=== PATIENT | female | born 1990 | race Caucasian/White ===

== ENCOUNTER 2021-10-05 12:01 | Emergency (ER) | payer BC, MEDICAID, SELFPAY ==
--- NOTE | 2021-10-05 12:07 | ED.URI ---
HPI - URI/Sore Throat General Chief Complaint: Upper Respiratory Infection Stated Complaint: cough and sore throat Time Seen by Provider: 10/05/21 12:07 Source: patient and RN notes reviewed History of Present Illness HPI Narrative: Patient is a 31-year-old female who presents the urgent care with complaints of cough and sore throat since Saturday. Patient states that it started 4 weeks ago, cleared up for approximately 1 week and then came back last Saturday. Patient states she did take a negative Covid test a few days ago. States that he has had body aches, chills, nausea, cough one episode of vomiting and wheezing. Denies of any known exposure to Covid. Patient has had the COVID vaccine. No other acute complaints. No acute distress noted. Patient reported care. Some parts of this dictation were generated by voice recognition software and may contain typographical and/or grammatical inaccuracies. Related Data Home Medications Medication Instructions Recorded Confirmed citalopram 40 mg PO DAILY 10/05/21 10/05/21 Allergies Allergy/AdvReac Type Severity Reaction Status Date / Time No Known Allergies Allergy Verified 10/05/21 12:04 Review of Systems Review of Systems: CONSTITUTIONAL: Denies fever, chills, or sweats. Reports of fatigue EYES: Denies visual changes, redness, or discharge. ENT: Denies rhinorrhea, congestion, otalgia. Reports of sore throat CARDIOVASCULAR: Denies chest pain, palpitations, or edema. RESPIRATORY: Reports of cough, wheezing intermittent dyspnea GASTROINTESTINAL: Reports of nausea with one episode of vomiting GENITOURINARY: Denies dysuria or hematuria. SKIN: Denies rash or itching. MUSCULOSKELETAL: Denies back pain, joint pain. Reports body aches NEUROLOGIC: Denies headache, numbness, or weakness. All other systems reviewed are negative, except as documented in HPI. PMFSH Comments At the time of my signature, I reviewed and agree with the nursing past medical, surgical, social, and family history. There is no relevant family history pertinent to the patient complaint. Exam Narrative: GENERAL: This is a well-nourished, well-developed patient, in no apparent distress. HEAD: normocephalic, atraumatic. EYES: PERRL. Sclera clear/white. Vision is grossly intact. EARS: External ears normal, auditory canals clear and without drainage, TMs normal without perforation. Hearing grossly intact. NOSE: External nose normal with no obvious nasal discharge, erythemic nares with clear to yellow rhinorrhea THROAT: Mucous membranes moist, posterior pharynx clear. Moderate postnasal drainage NECK: Neck supple CARDIOVASCULAR: Regular rate and rhythm without murmurs, gallops, or rubs. RESPIRATORY: Mild expiratory wheezes throughout SKIN: warm, intact with no suspicious lesions or rash, good texture and turgor. NEURO: awake, alert, and oriented to person, place and time. There were no obvious focal neurologic abnormalities. EXTREMITIES: No clubbing, cyanosis, or edema. Course Course Level of Care: Express Care Visit Vital Signs Vital signs: Vital Signs Temperature 98.1 F 10/05/21 12:09 Pulse Rate 52 L 10/05/21 12:09 Respiratory Rate 16 10/05/21 12:09 Blood Pressure 119/66 10/05/21 12:09 Pulse Oximetry 100 10/05/21 12:09 Temperature 98.1 F 10/05/21 12:09 Pulse Rate 52 L 10/05/21 12:09 Respiratory Rate 16 10/05/21 12:09 Blood Pressure 119/66 10/05/21 12:09 Pulse Oximetry 100 10/05/21 12:09 Reviewed MDM - URI/Sore Throat MDM Narrative Medical decision making narrative: Advised patient to use Mucinex and an antihistamine such as Claritin or Zyrtec in conjunction with Flonase nasal spray for upper respiratory relief. Complete the steroid regimen as prescribed. Use the inhaler as needed for shortness of breath or wheezing. Continue Tylenol/ibuprofen as needed. Increase fluid intake and rest. If you develop any increase in symptoms associated with difficulty breathing or ch
[2021-10-05 12:09] VITALS: BP 119/66; PULSE 52; RESP 16; TEMP 36.7; O2SAT 100
== END 2021-10-05 12:20 | disposition home or self-care (01) ==
PROVIDERS: Emergency Provider Nurse Practitioner Family
DX: J32.9 Chronic sinusitis, unspecified (principal); J06.9 Acute upper respiratory infection, unspecified; F32.9 Major depressive disorder, single episode, unspecified
CPT/HCPCS: 99203; G0463

== ENCOUNTER 2022-01-15 12:50 | Emergency (ER) | payer BC, SELFPAY ==
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
[2022-01-15 12:58] VITALS: BP 120/59; PULSE 60; RESP 20; TEMP 36.5; O2SAT 100
== END 2022-01-15 13:20 | disposition home or self-care (01) ==
PROVIDERS: Emergency Provider Nurse Practitioner Family
DX: H66.93 Otitis media, unspecified, bilateral (principal); F32.A Depression, unspecified
CPT/HCPCS: 99213; G0463

== ENCOUNTER 2022-04-30 12:23 | Emergency (ER) | payer BC, SELFPAY ==
[2022-04-30 12:28] VITALS: BP 114/66; PULSE 55; RESP 14; TEMP 35.9; O2SAT 100
--- NOTE | 2022-04-30 13:15 | ED.EAR ---
HPI - Ear Problem General Chief complaint: Ear Stated complaint: ear pressure down into jaw / throat Time Seen by Provider: 04/30/22 12:30 Source: patient, RN notes reviewed and old records reviewed Mode of arrival: ambulatory Limitations: no limitations History of Present Illness HPI Narrative: 31-year-old female who presents to [facility] with complaints of right ear pain down into jaw for the past 2 weeks and sore throat for the past 2 to 3 days,Patient reports that she has a upper right back molar that is broken with decay but is not giving her any discomfort at this time. Patient reports that she is COVID vaccinated, also had COVID 2 months ago. Patient has been taking Ibuprofen for her discomfort. MD Complaint: ear pain and other (Sore throat) Severity: moderate Discharge from ear: Reports no Treatment prior to arrival: oral analgesic Related Data Home Medications Medication Instructions Recorded Confirmed citalopram 40 mg tablet 40 mg PO DAILY 10/05/21 04/30/22 Allergies Allergy/AdvReac Type Severity Reaction Status Date / Time tree nut Allergy Swelling Verified 04/30/22 12:50 of Lip/Tongue/Throat Review of Systems Review of Systems: CONSTITUTIONAL: Denies fever, chills, or sweats. EYES: Denies visual changes, redness, or discharge. ENT: Denies rhinorrhea, congestion, positive for sore throat, no otalgia.positive for poor dentition CARDIOVASCULAR: Denies chest pain, palpitations, or edema. RESPIRATORY: Denies cough or dyspnea. GASTROINTESTINAL: Denies abdominal pain, nausea, vomiting, or diarrhea. GENITOURINARY: Denies dysuria or hematuria. SKIN: Denies rash or itching. MUSCULOSKELETAL: Denies back pain, joint pain, or myalgia. NEUROLOGIC: Denies headache, numbness, or weakness. PSYCHIATRIC: Denies anxiety or depression. All systems reviewed & are unremarkable except as noted in HPI and below PMFSH Past Medical History Medical History (Updated 05/02/22 @ 21:17 by Meenakshi Power NP) Anxiety and depression Bronchitis GERD (gastroesophageal reflux disease) Surgical History Surgical History (Updated 05/02/22 @ 21:14 by Meenakshi Power NP) H/O tubal ligation Hx of cholecystectomy Social History Social History (Updated 05/02/22 @ 21:18 by Meenakshi L. Jannet, [employer]) Smoking status: Unknown if ever smoked Alcohol intake: current Alcohol use details: social Substance use: current Substance use type: marijuana Gender identity (if verbalized by the patient): Female Comments At time of signature agree with nursing documentation of past medical surgical, social, and family history. There is no relevant family history pertinent to presenting complaints. Exam Narrative: GENERAL: Well-appearing, well-nourished, and in no acute distress. HEAD: Normocephalic, atraumatic. EYES: PERRLA and EOMI. ENT: Nares clear, no rhinorrhea or epistaxis. Mucous membranes moist.Right TM normal with ear canal red and swollen, Left TM and canal normal, throat red with swollen tonsils, no lesions or exudates NECK: Supple.no lymphadenopathy CHEST: Clear to auscultation. No respiratory distress. HEART: Regular rate and rhythm. No murmur heard. Normal peripheral pulses. ABDOMEN: Soft, nontender, nondistended, normal active bowel sounds. EXTREMITIES: Normal range of motion. No edema. SKIN: Warm, dry, no rash. NEURO: No focal deficits. Alert and oriented x3. Course Course Level of Care: Express Care Visit Vital Signs Vital signs: Vital Signs Temperature 35.9 C L 04/30/22 12:28 Pulse Rate 55 L 04/30/22 12:28 Respiratory Rate 14 04/30/22 12:28 Blood Pressure 114/66 04/30/22 12:28 Pulse Oximetry 100 04/30/22 12:28 Oxygen Delivery Room Air 04/30/22 12:28 Temperature 35.9 C L 04/30/22 12:28 Pulse Rate 55 L 04/30/22 12:28 Respiratory Rate 14 04/30/22 12:28 Blood Pressure 114/66 04/30/22 12:28 Pulse Oximetry 100 04/30/22 12:28 Oxygen Delivery Room Air 04/30/22 12:28
== END 2022-04-30 13:45 | disposition home or self-care (01) ==
PROVIDERS: Emergency Provider Registered Nurse
DX: H66.91 Otitis media, unspecified, right ear (principal); K21.9 Gastro-esophageal reflux disease without esophagitis; F41.9 Anxiety disorder, unspecified; F32.A Depression, unspecified
CPT/HCPCS: 87081; 87880; 99213; G0463